=== PATIENT | male | born 1980 | race Caucasian/White ===

== ENCOUNTER 2021-06-19 13:56 | Emergency (ER) | payer OTHER, SELFPAY ==
[2021-06-19 14:05] VITALS: BP 180/133; PULSE 97; RESP 16; TEMP 36.8; O2SAT 96; BMI 44.7
--- NOTE | 2021-06-19 15:03 | ED_ITS ---
Documented by User: Ta Vazquez DO 06/24/21 14:21 HPI - Animal Bite General: Chief Complaint: Animal Bite Stated Complaint: Dog Bite Time Seen by Provider: 06/19/21 14:55 History of Present Illness: HPI narrative: 41-year-old male presents emergency room after having been bit by a dog. 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 He was bit in the left flank and in the right axillary area a has some bleeding left axilla. He is relatively certain he is out of date on his tetanus shot. The animal has not been immunized but is quarantined by the Police Department and [place]. The animal and not been reported to recently be ill. MD complaint: animal bite Onset (ago): minute(s) Animal: dog Description of animal: household pet and appeared well Mechanism: bite Location: abdomen Context: provoked Associated symptoms: Reports erythema; Deny bleeding, chills, cough, diaphoresis, fever(s), headache(s), numbness, rash, short of breath, syncope, weakness or wound drainage Review of Systems Const: Denies: fever(s), chills or diaphoresis ENMT: Denies: throat pain, ear or mastoid pain, nasal discharge or nasal congestion Card: Denies: syncope Resp: Denies: dyspnea, productive cough or non-productive cough GI: Denies: abdominal pain, nausea, vomiting, hematemesis, coffee ground emesis, diarrhea, constipation, bloating, hematochezia or melena : Denies: flank pain, dysuria, urinary frequency or urinary urgency Skin/Breast: Denies: rash or pruritus Neuro: Denies: headache(s) Physical Exam Const: COMMON NORMALS: no acute distress GENERAL APPEARANCE: cooperative and comfortable ORIENTATION/CONSCIOUSNESS: Yes awake, Yes oriented to person, Yes oriented to place and Yes oriented to time HENMT: COMMON NORMALS: normocephalic, atraumatic and hearing grossly normal bilaterally HEAD & SCALP: normocephalic and atraumatic Neck/C-Spine: COMMON NORMALS: no JVD Resp: COMMON NORMALS: normal respiratory effort, No retractions, No use of accessory muscles and clear to auscultation bilaterally AUSCULTATION: clear to auscultation bilaterally Cardio: COMMON NORMALS: no JVD, regular rate, regular rhythm and No murmurs present (Cardio) RATE: regular rate RHYTHM: regular rhythm GI: COMMON NORMALS: Soft to palpation and No hepatosplenomegaly present AUSCULTATION: Yes normoactive bowel sounds PALPATION: Yes Soft to palpation, No Tenderness to palpation present (GI), No Guarding due to palpation present (GI) and Yes No hepatosplenomegaly present Extremity: COMMON NORMALS: normal to inspection, capillary refill normal, no clubbing, cyanosis or edema, no calf tenderness and no pedal edema Neuro: SENSORIUM/ORIENTATION: Yes oriented to person, Yes oriented to place and Yes oriented to time Skin: GENERAL SKIN EXAM: erythema OTHER: Full-thickness laceration of the right axilla approximately an inch and a half in length superficial abrasions on the left flank no active bleeding in either spot. Course Vital Signs: Vital signs: Vital Signs Temperature 98.2 F 06/19/21 14:05 Pulse Rate 68 06/19/21 15:59 Respiratory Rate 20 H 06/19/21 15:59 Blood Pressure 150/108 06/19/21 15:59 Pulse Oximetry 98 06/19/21 15:59 MDM - Animal Bite MDM Narrative: Medical decision making narrative: Reviewed findings with the patient midlevel close the laceration in the right axilla discharge patient home with oral antibiotics topical antibiotic Follow-up as needed Discharge Plan Discharge Patient Disposition: Home Clinical Impression: Dog bite, Laceration Condition: Stable Prescriptions: New Augmentin 875-125 mg tablet 1 tab PO BID Qty: 14 RF: 0 mupirocin 2 % ointment 1 applic topical BID Qty: 15 RF: 0 Discharge Orders: Discharge ED (Routine); Ordered 06/19/21 Ordered By: Ta Vazquez Discharge Diet: Usual diet Discharge Activity: Resume usual activity Patient Instructions: Opioid Safety Activity Restrictions/Additional Instructions: Remove sutures in 7 days. Coding Level of Care Code ED Art Display Maker for Chg Fwd Exam Comprehensive Documented by User: ROBERTO Holder 06/20/21 07:01 HPI - Animal Bite General: Chief Complaint: Animal Bite Stated Complaint: Dog Bite Time Seen by Provider: 06/19/21 14:55 Procedures Laceration Laceration 1: Site: upper extremity (R axilla) Side (If applicable): right Size (cm): 2.0 Description: irregular Depth: simple, single layer Local Anesthetic: lidocaine 1% Amount of anesthesia used (mL): 3.0 Pre-repair: wound explored and irrigated extensively Skin layer closed with: nylon Size (cm): 4-0 Number of sutures: 5 Technique: simple, interrupted Course Vital Signs: Vital signs: Vital Signs Temperature 98.2 F 06/19/21 14:05 Pulse Rate 68 06/19/21 15:59 Respiratory Rate 20 H 06/19/21 15:59 Blood Pressure 150/108 06/19/21 15:59 Pulse Oximetry 98 06/19/21 15:59 MDM - Animal Bite MDM Narrative: Medical decision making narrative: I was consulted by Dr. Vazquez to repair patient's dog bite laceration. Wound was copiously irrigated by myself and repaired as documented. Other than this procedure I did not actively participate in any portion of patient's care. Discharge Plan Discharge Patient Disposition: Home Clinical Impression: Dog bite, Laceration Condition: Stable Prescriptions: New Augmentin 875-125 mg tablet 1 tab PO BID Qty: 14 RF: 0 mupirocin 2 % ointment 1 applic topical BID Qty: 15 RF: 0 Discharge Orders: Discharge ED (Routine); Ordered 06/19/21 Ordered By: Ta Vazquez Discharge Diet: Usual diet Discharge Activity: Resume usual activity Patient Instructions: Opioid Safety Activity Restrictions/Additional Instructions: Remove sutures in 7 days. Coding Level of Care Code ED Art Display Maker for Oliva Fwwaylon Exam Comprehensive
--- NOTE | 2021-06-19 15:23 | XR_ITS ---
WS: [id number] XR knee LT 3V* [id number] REASON FOR EXAM: pain FINDINGS: Joint spaces of the left knee are intact and relatively well-preserved. 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 No significant soft tissue abnormality. 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 No acute abnormality identified.
--- NOTE | 2021-06-19 15:23 | XR_ITS ---
WS: [id number] XR ankle RT min 3V* [id number] REASON FOR EXAM: pain FINDINGS: The ankle mortise is preserved. No fracture or other focal bone abnormality identified. Soft tissue swelling around the ankle. XR/XR ankle RT min 3V* [id number] IMPRESSION: No fracture/dislocation identified.
[2021-06-19] MEDS: tetanus-dipt-pertussis 0.5 mL SDV IM (15:53)
--- NOTE | 2021-06-19 15:55 | PC.PHAR ---
pt and pts states the pt takes no rx or otc medications
[2021-06-19 15:59] VITALS: BP 150/108; PULSE 68; RESP 20; O2SAT 98
== END 2021-06-19 16:53 | disposition home or self-care (01) ==
PROVIDERS: Emergency Provider Family Medicine
DX: S41.151A Open bite of right upper arm, initial encounter (principal); S31.159A Open bite of abdominal wall, unspecified quadrant without penetration into peritoneal cavity, initial encounter; W54.0XXA Bitten by dog, initial encounter; Z23 Encounter for immunization
CPT/HCPCS: 12001; 73562; 73610; 90471; 90715; 99283

== ENCOUNTER 2023-11-19 13:39 | Emergency (ER) | payer OTHER, SELFPAY ==
[2023-11-19 13:45] VITALS: BP 133/78; PULSE 72; RESP 16; TEMP 36.9; O2SAT 98
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
[2023-11-19 15:17] VITALS: BP 128/84; PULSE 67; O2SAT 97
== END 2023-11-19 15:18 | disposition home or self-care (01) ==
PROVIDERS: Emergency Provider Physician Assistant
DX: S06.0X0A Concussion without loss of consciousness, initial encounter (principal); Y04.2XXA Assault by strike against or bumped into by another person, initial encounter; Y92.199 Unspecified place in other specified residential institution as the place of occurrence of the external cause; Y99.0 Civilian activity done for income or pay
CPT/HCPCS: 70450; 72125; 99284

== ENCOUNTER → 2025-06-23 18:11 | Outpatient (BNVA) | payer OTHER, SELFPAY | DX: M25.519 Pain in unspecified shoulder (principal); S49.91XA Unspecified injury of right shoulder and upper arm, initial encounter; M25.711 Osteophyte, right shoulder; M85.811 Other specified disorders of bone density and structure, right shoulder | CPT/HCPCS: 73030 ==

== ENCOUNTER 2025-08-03 16:02 | Outpatient (CLI) | payer OTHER, SELFPAY ==
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
== END 2025-08-03 16:03 | disposition home or self-care (01) ==
LOC: RAD 16:04
PROVIDERS: PCP Family Medicine; Visit Provider Family Medicine
DX: M75.111 Incomplete rotator cuff tear or rupture of right shoulder, not specified as traumatic (principal); M19.011 Primary osteoarthritis, right shoulder; M85.611 Other cyst of bone, right shoulder
CPT/HCPCS: 73221